=== PATIENT | female | born 1980 | race Caucasian/White ===

== ENCOUNTER 2016-07-25 20:28 | Observation (INO) | payer OTHER ==
[~2016-07-25] VITALS: Ht 175.3 cm; Wt 93.4 kg
[~2016-07-25 20:28] MED LIST: CALC-787 PO; DCS100C PO; DOCO200C2 PO; HYDR-3720 PO; IBP800T PO; IBUP800T26 PO; OXYC-202 PO; PREN-115 PO
[2016-07-25 20:46] VITALS: BP 145/91
[2016-07-25] MEDS ORDERED: PREN-142 PO (20:48)
[2016-07-25] MEDS ORDERED: D5 LR IV SOLUTION 1,000 ML IV ONE (21:47)
[2016-07-25] MEDS: D5 LR IV SOLUTION 1,000 ML IV SCH (22:15)
--- NOTE | 2016-07-25 22:17 | History & Physical ---
History and Physical Date Seen by Provider: Jul 25, 2016 Time Seen by Provider: 22:14 this patient is a 35-year-old A4 white female with an EDC of 7 717 putting her at 36-6/7 weeks' gestation. She was at a ball game earlier this evening when she fell on the bleachers. She has abrasions to her right arm and right leg. She M Armaan her abdomen with some degree of force. She denies rupture membranes or bleeding. On initial evaluation at labor and delivery she was found to be meron every 3-4 minutes lasting 60 seconds or so she does not feel those contractions. She has no idea how long she has been meron. She has had no problems with this . She has had a C- section with her previous . Understands the plan now is for observation for 24 hours due to labor and the increased risk for placental abruption after her trauma. Allergies are none Medications are vitamins Medical social and surgical histories are per the antepartum record HEENT exam is normal Neck supple no lymphadenopathy or thyromegaly Abdomen is gravid soft nontender nondistended Extremities show clubbing cyanosis. There is no Homans sign. Exam per the nurse shows a cervix 30 percent effaced closed. Assessment and plan late at 36 and 6 weeks gestation status post a fall and now is having regular contractions. This indicates increased risk for placental abruption. In light of that we will observe now for the usual 24 hours. The other issues that appreciate she may very well be in labor and we will observe for that as well. Plan will be to proceed with for either or maternal indications. labor/placental abruption Allergies and Home Medications Allergies Coded Allergies: No Known Drug Allergies (Unverified , 09/14/15) Home Medications Vit No.124/Iron/FA 1 Each Tablet, 1 EACH PO DAILY, (Reported) ANNE MARIE SANDERSON MD Jul 25, 2016 10:17 pm
[2016-07-25] MEDS: CATHETER FLUSH 10 ML SYR IV SCH (22:33)
[2016-07-25 22:41] LABS: BASOPHILS % (AUTO) 0 % (0-10); EOSINOPHILS % (AUTO) 0 % (0-10); LYMPHOCYTES # (AUTO) 2.8 X 10^3 (1.0-4.0); LYMPHOCYTES % (AUTO) 26 % (12-44); MEAN CORPUSCULAR HEMOGLOBIN 30 PG (25-34); MEAN CORPUSCULAR HGB CONC 34 G/DL (32-36); MEAN CORPUSCULAR VOLUME 88 FL (80-99); MEAN PLATELET VOLUME 12.6 FL (7.4-10.4); MONOCYTES # (AUTO) 0.7 X 10^3 (0.0-1.0); MONOCYTES % (AUTO) 7 % (0-12); NEUTROPHILS # (AUTO) 7.3 X 10^3 (1.8-7.8); NEUTROPHILS % (AUTO) 67 % (42-75); PLATELET COUNT 136 10^3/uL (130-400); RED BLOOD COUNT 4.21 10^6/uL (4.35-5.85); RED CELL DISTRIBUTION WIDTH 12.9 % (10.0-14.5); WHITE BLOOD COUNT 10.8 10^3/uL (4.3-11.0)
[2016-07-25 23:43] VITALS: BP 140/79
[2016-07-26] MEDS: D5 LR IV SOLUTION 1,000 ML IV SCH ×3 (04:36→18:13)
[2016-07-26] MEDS: CATHETER FLUSH 10 ML SYR IV SCH (06:40)
--- NOTE | 2016-07-26 06:46 | Progress Note-Standard ---
Standard Progress Note Progress Notes/Assess & Plan Date Seen by Provider: Jul 26, 2016 Time Seen by Provider: 06:44 Progress/Assessment & Plan patient without complaint. She has had no discharge or bleeding. She feel baby moving. She did not feel contractions. She had been meron throughout the night however her contractions spaced out to probably 2 or 3/h. Vital Signs Date Time Temp Pulse Resp B/P (MAP) Pulse Ox O2 Delivery O2 Flow Rate FiO2 07/25/16 23:43 97.6 90 18 140/79 Room Air 07/25/16 20:46 97.7 96 18 145/91 Room Air I & O 07/26/16 07:00 Intake Total 1000 ml Balance 1000 ml Laboratory Tests 07/25/16 22:15 The abdomen is soft and gravid nontender. Extreme show clubbing or cyanosis. There is no Homans sign. Assessment and plan hospital day 2 admitted for observation secondary to term labor and contractions after a fall. Patient has remained stable. She will be observed for total 24 hours and if she remains completely stable without signs symptoms and indications of abruptio placenta or labor then we will discharge home with follow-up in clinic Final Diagnosis labor ANNE MARIE SANDERSON MD Jul 26, 2016 6:46 am
[2016-07-26 06:51] VITALS: BP 133/89
--- NOTE | 2016-07-26 07:06 | Discharge Instructions ---
Discharge Instructions Discharge Medications New, Converted or Re-Newed RX: RX on Chart Patient Instructions Patient Instructions: as instructed Return to The Hospital For: as instructed Activity & Diet Discharge Diet: No Restrictions Activity as Tolerated: Yes Orders-Post D/C & Referrals return to clinic as scheduled Turning to clinic promptly for any signs symptoms and indications of labor, vaginal bleeding, rupture of membranes, decreased movement ANNE MARIE SANDERSON MD Jul 26, 2016 7:06 am
[2016-07-26 07:50] VITALS: BP 135/83
[2016-07-26 19:35] VITALS: BP 139/83
== END 2016-07-26 20:17 | disposition home or self-care (01) ==
LOC: WSo 20:28 → LDRP 20:28 → WSo 21:45 → LDRP 21:45 → UNDOADMOB 21:45 → LDRP 22:00 → UNDODISOB 07-26 20:17 → EDSTATUS 07-29 09:52
PROVIDERS: ADMIT Obstetrics & Gynecology; ATTEND Obstetrics & Gynecology
DX: O9A.213 Injury, poisoning and certain other consequences of external causes complicating pregnancy, third trimester (principal); S39.91XA Unspecified injury of abdomen, initial encounter; O60.03 Preterm labor without delivery, third trimester; O34.211 Maternal care for low transverse scar from previous cesarean delivery; Z3A.36 36 weeks gestation of pregnancy; W10.8XXA Fall (on) (from) other stairs and steps, initial encounter
CPT/HCPCS: 36415; 85025; 96360; 96361; 99211; G0378

== ENCOUNTER 2016-08-05 11:18 | Outpatient (CLI) | payer OTHER ==
[~2016-08-05] VITALS: Ht 175.3 cm; Wt 92.5 kg
[~2016-08-05 11:18] MED LIST changes: +PREN-142 PO
[2016-08-05 11:24] VITALS: BP 137/94
[2016-08-05] MEDS ORDERED: PSEU-137 PO (11:29)
== END 2016-08-05 11:40 | disposition home or self-care (01) ==
LOC: PREOP 11:18
PROVIDERS: ATTEND Obstetrics & Gynecology
DX: Z01.818 Encounter for other preprocedural examination (principal); Z11.2 Encounter for screening for other bacterial diseases; O34.219 Maternal care for unspecified type scar from previous cesarean delivery; O99.019 Anemia complicating pregnancy, unspecified trimester; D64.9 Anemia, unspecified
CPT/HCPCS: 87081

== ENCOUNTER 2016-08-09 05:58 | Inpatient (IN) | payer OTHER ==
[~2016-08-09] VITALS: Ht 175.3 cm; Wt 93.0 kg
[~2016-08-09 05:58] MED LIST changes: +CITRIC ACID/SOB CIT (BICITRA) 30 ML UDC ONE; +FAMOTIDINE 20MG/2ML IV (PEPCID) ONE; +METOCLOPRAMIDE INJ 10 MG/2 ML (REGLAN) ONE; +PSEU-137 PO; +ceFAZolin 2 GM/50 ML NS 50 ML ONE; +metroNIDAZOLE 500MG/100ML IVPB 100 ML ONE
--- OUTSIDE RECORDS SUMMARY | 2016-08-09 06:04 | XMS REPORT | Continuity of Care Document ---
Author Author [facility] Address Unknown Phone Unavailable Allergies Active Description Code Type Severity Reaction Onset Reported/Identified Relationship to Patient Clinical Status Yes No Known Drug Allergies [id number] Drug Allergy Unknown N/ A 09/14/2015 Medications Problems Date Dx Coded Attending Type Code Diagnosis Diagnosed By 07/05/2012 SOFI CHANG, ELISE Garland Ot 634.91 SPON ABORT UNCOMPL-INC 03/03/2013 JORGE PICKERING DO V04.81 FLU SHOT 03/03/2013 JORGE PICKERING DO V06.1 TDAP DX 03/03/2013 HECTOR MADSEN MD V04.81 FLU SHOT 03/03/2013 HECTOR AMDSEN MD V06.1 TDAP DX 03/03/2013 JORGE PICKERING DO V04.81 FLU SHOT 03/03/2013 JORGE PICKERING DO V06.1 TDAP DX 03/29/2013 HECTOR MADSEN MD V65.11 NEW MOMMY VISIT 03/29/2013 JORGE PICKERING DO V65.11 NEW MOMMY VISIT 04/23/2013 ANNE MARIE SANDERSON MD Ot 287.5 THROMBOCYTOPENIA NOS 04/23/2013 ANNE MARIE SANDERSON MD Ot 648.91 OT CURR COND-DELIVERED 04/23/2013 ANNE MARIE SANDERSON MD Ot 649.31 COAGULATION DEFECTS COMP PREG/ CHILDBIRTH 04/23/2013 ANNE MARIE SANDERSON MD Ot 652.21 BREECH PRESENTAT-DELIVER 04/23/2013 ANNE MARIE SANDERSON MD Ot 657.01 POLYHYDRAMNIOS,DEL W OR W/O MENTN ANTEPA 04/23/2013 ANNE MARIE SANDERSON MD, Ot V02.51 GROUP B STREPT CARRIER/SUSPECTED CARRIER 04/23/2013 ANNE MARIE SANDERSON MD Ot V27.0 DELIVER-SINGLE LIVEBORN 03/10/2014 Ot 652.23 03/10/2014 Ot V72.84 03/10/2014 Ot V74.8 03/10/2014 CLIFF CHANG, KAROL Ot V72.84 03/11/2014 Ot 652.23 03/11/2014 Ot V72.84 03/11/2014 Ot V74.8 03/11/2014 CLIFF CHANG, KAROL Ot V72.84 03/15/2014 MARIA E CHANG, ANNE MARIE [place] Ot 632 MISSED 03/31/2014 MARIA E CHANG, ANNE MARIE [place] Ot 632 03/31/2014 MARIA E CHANG, ANNE MARIE [place] Ot V72.63 03/31/2014 MARIA E CHANG, ANNE MARIE [place] Ot V74.8 06/01/2014 CLIFF CHANG, KAROL Ot V72.84 03/09/2015 Ot 652.23 03/09/2015 Ot V72.84 03/09/2015 Ot V74.8 03/09/2015 MARIA E CHANG, ANNE MARIE [place] Ot 632 03/09/2015 MARIA E CHANG, ANNE MARIE [place] Ot V72.63 03/09/2015 MARIA E CHANG, ANNE MARIE [place] Ot V74.8 03/09/2015 CLIFF CHANG, KAROL Ot V72.84 09/13/2015 Ot 652.23 BREECH PRESENT-ANTEPART 09/13/2015 Ot V72.84 EXAM PRE-OPERATIVE NOS 09/13/2015 Ot V74.8 SCREEN-BACTERIAL DIS NEC 09/13/2015 MARIA E CHANG, ANNE MARIE [place] Ot 632 MISSED 09/13/2015 MARIA E CHANG, ANNE MARIE [place] Ot V72.63 PRE-PROCEDURAL LABORATORY EXAMINATION 09/13/2015 MARIA E CHANG, ANNE MARIE [place] Ot V74.8 SCREEN-BACTERIAL DIS NEC 09/13/2015 CLIFF CHANG, KAROL Ot V72.84 EXAM PRE-OPERATIVE NOS 09/13/2015 Ot 652.23 BREECH PRESENT-ANTEPART 09/13/2015 Ot V72.84 EXAM PRE-OPERATIVE NOS 09/13/2015 Ot V74.8 SCREEN-BACTERIAL DIS NEC 09/13/2015 MARIA E CHANG, ANNE MARIE [place] Ot 632 MISSED 09/13/2015 ANNE MARIE SANDERSON MD, Ot V72.63 PRE-PROCEDURAL LABORATORY EXAMINATION 09/13/2015 ANNE MARIE SANDERSON MD, Ot V74.8 SCREEN-BACTERIAL DIS NEC 09/13/2015 CLIFF CHANG, KAROL Ot V72.84 EXAM PRE-OPERATIVE NOS 09/14/2015 ANNE MARIE SANDERSON MD Ot D64.9 ANEMIA, UNSPECIFIED 09/14/2015 ANNE MARIE SANDERSON MD Ot O02.1 MISSED 09/15/2015 ANNE MARIE SANDERSON MD, Ot D64.9 ANEMIA, UNSPECIFIED 09/15/2015 ANNE MARIE SANDERSON MD Ot O02.1 MISSED 09/15/2015 ANNE MARIE SANDERSON MD Ot N90.4 LEUKOPLAKIA OF VULVA 09/15/2015 ANNE MARIE SANDERSON MD Ot O02.1 MISSED 09/19/2015 ANNE MARIE SANDERSON MD Ot N90.4 LEUKOPLAKIA OF VULVA 09/19/2015 ANNE MARIE SANDERSON MD Ot O02.1 MISSED 09/19/2015 ANNE MARIE SANDERSON MD Ot N90.4 LEUKOPLAKIA OF VULVA 09/19/2015 ANNE MARIE SANDERSON MD Ot O02.1 MISSED 2015 ANNE MARIE SANDERSON MD Ot N90.4 LEUKOPLAKIA OF VULVA 2015 ANNE MARIE SANDERSON MD Ot O02.1 MISSED 07/25/2016 Ot 652.23 BREECH PRESENT-ANTEPART 07/25/2016 Ot V72.84 EXAM PRE-OPERATIVE NOS 07/25/2016 Ot V74.8 SCREEN-BACTERIAL DIS NEC 07/25/2016 ANNE MARIE SANDERSON MD Ot 632 MISSED 07/25/2016 ANNE MARIE SANDERSON MD, Ot V72.63 PRE-PROCEDURAL LABORATORY EXAMINATION 07/25/2016 ANNE MARIE SANDERSON MD, Ot V74.8 SCREEN-BACTERIAL DIS NEC 07/25/2016 CLIFF CHANG, KAROL Ot V72.84 EXAM PRE-OPERATIVE NOS 07/26/2016 ANNE MARIE SANDERSON MD, Ot O34.211 MATERN CARE FOR LOW TRANSVERSE SCAR FROM 07/26/2016 ANNE MARIE SANDERSON MD, Ot O60.03 LABOR WITHOUT DELIVERY, THIRD TR 07/26/2016 ANNE MARIE SANDERSON MD, Ot O9A.213 INJ/POISN/OTH CONSEQ OF EXTERNAL CAUSES 07/26/2016 ANNE MARIE SANDERSON MD, Ot S39.91XA UNSPECIFIED INJURY OF ABDOMEN, INITIAL E 07/26/2016 ANNE MARIE SANDERSON MD, Ot W10.8XXA FALL (ON) (FROM) OTHER STAIRS AND STEPS, 07/26/2016 ANNE MARIE SANDERSON MD, Ot Z3A.36 36 WEEKS GESTATION OF Procedures Code Description Performed By Performed On 74.1 LOW CERVICAL 04/21/2013 Results Test Result Range Automated blood complete blood count (hemogram) panel - 09/15/15 11:53 Blood leukocytes automated count (number/volume) 6.5 10*3/ uL 4.3-11.0 Blood erythrocytes automated count (number/volume) 4.42 10*6 /uL 4.35-5.85 Venous blood hemoglobin measurement (mass/volume) 13.1 g/dL 11.5-16.0 Blood hematocrit (volume fraction) 38 % 35-52 Automated erythrocyte mean corpuscular volume 85 [foz_us] 80-99 Automated erythrocyte mean corpuscular hemoglobin (mass per erythrocyte) 30 pg 25-34 Automated erythrocyte mean corpuscular hemoglobin concentration measurement ( mass/volume) 35 g/dL 32-36 Automated erythrocyte distribution width ratio 12.1 % 10.0-14.5 Automated blood platelet count (count/volume) 146 10*3/uL 130-400 Automated blood platelet mean volume measurement 11.1 [foz_ us] 7.4-10.4 Methicillin resistant Staphylococcus aureus (MRSA) screening culture - 11:55 Methicillin resistant Staphylococcus aureus (MRSA) screening culture NEG NRG Complete blood count (CBC) with automated white blood cell (WBC) differential - 07/25/16 22:15 Blood leukocytes automated count (number/volume) 10.8 10*3/ uL 4.3-11.0 Blood erythrocytes automated count (number/volume) 4.21 10*6 /uL 4.35-5.85 Venous blood hemoglobin measurement (mass/volume) 12.6 g/dL 11.5-16.0 Blood hematocrit (volume fraction) 37 % 35-52 Automated erythrocyte mean corpuscular volume 88 [foz_us] 80-99 Automated erythrocyte mean corpuscular hemoglobin (mass per erythrocyte) 30 pg 25-34 Automated erythrocyte mean corpuscular hemoglobin concentration measurement ( mass/volume) 34 g/dL 32-36 Automated erythrocyte distribution width ratio 12.9 % 10.0-14.5 Automated blood platelet count (count/volume) 136 10*3/uL 130-400 Automated blood platelet mean volume measurement 12.6 [foz_ us] 7.4-10.4 Automated blood neutrophils/100 leukocytes 67 % 42-75 Automated blood lymphocytes/100 leukocytes 26 % 12-44 Blood monocytes/100 leukocytes 7 % 0-12 Automated blood eosinophils/100 leukocytes 0 % 0-10 Automated blood basophils/100 leukocytes 0 % 0-10 Blood neutrophils automated count (number/volume) 7.3 10*3 1.8-7.8 Blood lymphocytes automated count (number/volume) 2.8 10*3 1.0-4.0 Blood monocytes automated count (number/volume) 0.7 10*3 0.0-1.0 Automated eosinophil count 0.0 10*3/uL 0.0-0.3 Automated blood basophil count (count/volume) 0.0 10*3/uL 0.0-0.1 [id number] - 07/25/16 22:15 [id number] SPECIMEN AVAILABLE NRG Methicillin resistant Staphylococcus aureus (MRSA) screening culture - 11:35 Methicillin resistant Staphylococcus aureus (MRSA) screening culture NEG NRG Encounters ACCT No. Visit Date/Time Discharge Status Pt. Type Provider Facility Loc./Unit Complaint [id number] 12/14/2013 11:25:00 12/14/2013 23: 59:59 CLS Outpatient JORGE PICKERING DO [id number] 03/29/2013 10:20:00 03/29/2013 23: 59:59 CLS Outpatient HECTOR MADSEN MD [id number] 03/03/2013 10:07:00 03/03/2013 23: 59:59 CLS Outpatient JORGE PICKERING DO
[2016-08-09] MEDS ORDERED: CITRIC ACID/SOB CIT (BICITRA) 30 ML UDC PO ONE (06:15)
[2016-08-09] MEDS ORDERED: CATHETER FLUSH 10 ML SYR IV PRN (06:15)
[2016-08-09] MEDS ORDERED: FAMOTIDINE 20MG/2ML IV (PEPCID) IV ONE (06:15)
[2016-08-09] MEDS ORDERED: METOCLOPRAMIDE INJ 10 MG/2 ML (REGLAN) IV ONE (06:15)
[2016-08-09 06:34] LABS: BASOPHILS % (AUTO) 0 % (0-10); EOSINOPHILS # (AUTO) 0.1 10^3/uL (0.0-0.3); EOSINOPHILS % (AUTO) 1 % (0-10); LYMPHOCYTES # (AUTO) 2.6 X 10^3 (1.0-4.0); LYMPHOCYTES % (AUTO) 25 % (12-44); MEAN CORPUSCULAR HEMOGLOBIN 31 PG (25-34); MEAN CORPUSCULAR HGB CONC 35 G/DL (32-36); MEAN CORPUSCULAR VOLUME 88 FL (80-99); MEAN PLATELET VOLUME 12.4 FL (7.4-10.4); MONOCYTES # (AUTO) 0.7 X 10^3 (0.0-1.0); MONOCYTES % (AUTO) 7 % (0-12); NEUTROPHILS # (AUTO) 6.8 X 10^3 (1.8-7.8); NEUTROPHILS % (AUTO) 67 % (42-75); PLATELET COUNT 123 10^3/uL (130-400); RED BLOOD COUNT 3.83 10^6/uL (4.35-5.85); RED CELL DISTRIBUTION WIDTH 12.7 % (10.0-14.5); WHITE BLOOD COUNT 10.1 10^3/uL (4.3-11.0)
[2016-08-09] MEDS: LACTATED RINGERS 1,000 ML IV PRN ×2 (06:34→07:30)
[2016-08-09] MEDS ORDERED: D5 LR IV SOLUTION 1,000 ML IV SCH (06:54)
[2016-08-09] MEDS ORDERED: OXYTOCIN/NORMAL SALINE 500 ML IV SCH (06:56)
[2016-08-09] MEDS ORDERED: OXYTOCIN/NORMAL SALINE 1,000 ML IV ONE (06:58)
[2016-08-09] MEDS ORDERED: fentaNYL INJECTION 100 MCG/2 ML AMP ONE (06:58)
[2016-08-09] MEDS ORDERED: PROMETHAZINE INJ 25 MG/ML (PHENERGAN) AMP IM PRN (07:00)
[2016-08-09] MEDS ORDERED: MEPERIDINE (DEMEROL) INJ 100 MG/ML IM PRN (07:00)
[2016-08-09] MEDS ORDERED: metroNIDAZOLE 500MG/100ML IVPB 100 ML IV ONE (07:00)
[2016-08-09] MEDS ORDERED: MEASLES,MUMPS,RUBELLA 1 EA INJ SC ONE (07:00)
[2016-08-09] MEDS ORDERED: oxyCODONE/APAP 10/325MG (PERCOCET 10) TABLET PO PRN (07:00)
[2016-08-09] MEDS ORDERED: ceFAZolin INJECTION 2,000 MG in NS (IVPB) 50 ML IV ONE (07:00)
[2016-08-09] MEDS ORDERED: TETANUS,DIPTH,PERTUSS P/F (BOOSTRIX) 0.5 ML VIAL IM ONE (07:00)
--- NOTE | 2016-08-09 07:02 | History & Physical ---
History and Physical Date Seen by Provider: Aug 09, 2016 Time Seen by Provider: 06:58 this patient is a 35-year-old A for 1 white female with an EDC of 7 717. She presents now for repeat delivery at 39 weeks gestation. Her has been complicated by GBS positive culture during the . That culture was performed on July 19, 2016. She denies rupture membranes or bleeding. this patient has had a progressive mild thrombocytopenia Allergies are none Medications are vitamin vitamins and B12 complex Past medical history, past surgical history, obstetric history, family history, social histories are per the antepartum record HEENT exam is normal Neck supple no lymphadenopathy no thyromegaly Abdomen gravid soft nontender nondistended Extremities show no clubbing cyanosis. There is no Homans sign. Pelvic exam is deferred monitor shows a normal heart rate pattern with frequent accelerations and no D cells. There are occasional contractions. Laboratory Tests 08/09/16 06:19 platelet count has noted. Assessment and plan benign week gestation with previous with mild thrombocytopenia and with a GBS positive culture. Patient is admitted now for repeat delivery. Platelet count is acceptable at 123. Surgical risks recovery follow-up and potential complications of all been discussed and reviewed. Patient's questions have been answered and she is ready to proceed 39 week repeat delivery with thrombocytopenia Allergies and Home Medications Allergies Coded Allergies: No Known Drug Allergies (Unverified , 09/14/15) Home Medications Vit No.124/Iron/FA 1 Each Tablet, 1 EACH PO DAILY, (Reported) Pseudoephedrine HCl 30 Mg Tablet, 30 MG PO BID PRN for nasal congestion, ( Reported) Clinical Quality Measures DVT/VTE Risk/Contraindication: Risk Factor Score Per Nursin RFS Level Per Nursing on Admit: 2=Moderate ANNE MARIE SANDERSON MD Aug 09, 2016 7:02 am
[2016-08-09] MEDS ORDERED: D5 LR IV SOLUTION 1,000 ML IV ONE (07:04)
[2016-08-09 07:30] VITALS: BP 140/89
[2016-08-09] MEDS ORDERED: ONDANSETRON 4 MG/2 ML (SDV) Z0FRAN ONE (07:35)
[2016-08-09] MEDS ORDERED: PHENYLEPHRINE 100 MCG/ML 10 ML (ANESTHESIA) SYR ONE (07:35)
--- NOTE | 2016-08-09 08:09 | Progress Note-Post Operative ---
Post-Operative Progess Note Surgeon (s)/Guidance Services Coordinator (s) Surgeon ANNE MARIE SANDERSON MD Guidance Services Coordinator: Starr Leon RN Pre-Operative Diagnosis 39 week gestation with previous and GBS positive culture Post-Operative Diagnosis same Procedure & Operative Findings Date of Procedure 08/09/16 Procedure Performed/Findings repeat low transverse delivery of a viable male infant with Apgars of 8915 minutes Birthweight of 9 lbs. 4 oz. at time 07 43 Anesthesia Type spinal analgesia Estimated Blood Loss Estimated blood loss (mL): 600 mL Specimens/Packing Specimens Removed male baby delivered, placenta sent to pathology Packing: none ANNE MARIE SANDERSON MD Aug 09, 2016 8:09 am
--- NOTE | 2016-08-09 08:14 | Operative Report ---
Operative Report Date of Procedure/Surgery Aug 09, 2016 Surgeon (s) ANNE MARIE SANDERSON MD Chemistry Technician (s): Starr Leon RN Post-Operative Diagnosis 39 week gestation with previous and GBS positive culture Procedure Performed repeat delivery of viable male infant with Apgars of 8915 expect a weighted 9 pounds and 4 ounces for 07 Description of Procedure Anesthesia Type: Spinal Estimated blood loss (mL): 600 mL Specimen(s) collected/removed placenta Packing: none Description of the Procedure with the patient in the supine position under satisfactory spinal anesthesia patient was prepped and draped in the usual fashion for abdominal surgery. A repeat Pfannenstiel incision made through the skin with the scalpel at the site of the patient's previous Pfannenstiel incision by removing the incisional scar. The abdomen was entered in the usual manner. Bladder retractor placed in position clean scalpel used to make a 4 cm hysterotomy incision transversely across loading segment. That incision was extended bluntly. The membranes were ruptured in the process releasing copious clear fluid. Chakraborty forceps were applied to facilitate delivery of a vigorous viable male . Infant had Apgars of 8 and 9 at one and 5 minutes respectively weight of 9 pounds ounces time and arterial umbilical cord gases pending. the umbilical cord was doubly clamped and cut and the passed to the back are in the pediatric nurse in attendance for the delivery The placenta delivered spontaneously Engel and was normal with a three-vessel cord. It was sent to pathology for permanent section due to the patient GBS positive culture. the uterus was exteriorized interior wiped clean with a wet laparotomy sponge and the uterine incision closed with a running locked suture ligated hemostasis was complete. The uterus was returned to the abdominal cavity all blood clot and debris was removed from the abdominal cavity. With sponge and needle counts correct. The anterior parietal peritoneum was closed with running suture of 2-0 Vicryl. The rectus muscles were reapproximated with 2-0 Vicryl. This fascia was closed with 2-0 Vicryl. The subcutaneous tissue was closed with 2-0 Vicryl. The skin was stapled. Sponge and needle counts were correct on completion of the procedure. Estimated blood loss was around 600 mL. The patient tolerated procedure well and was transferred to recovery room in stable condition. The infant had been taken stable to the full term nursery under the care of nurse back the pediatric nurse in attendance for delivery. Findings of the Procedure normal baby normal uterus normal placenta Allergies and Home Medications Allergies Coded Allergies: No Known Drug Allergies (Unverified , 09/14/15) Home Medications Vit No.124/Iron/FA 1 Each Tablet, 1 EACH PO DAILY, (Reported) Pseudoephedrine HCl 30 Mg Tablet, 30 MG PO BID PRN for nasal congestion, ( Reported) ANNE MARIE SANDERSON MD Aug 09, 2016 8:14 am
[2016-08-09] MEDS: KETOROLAC 30 MG/ML VIAL IVP SCH ×3 (09:00→21:06)
[2016-08-09 12:33] VITALS: BP 120/75
[2016-08-09] MEDS: HYDROcodone/APAP 10 MG/325 MG (LORTAB) TAB PO PRN (14:41)
[2016-08-09] MEDS: DOCUSATE SODIUM 100 MG (COLACE) CAP PO SCH ×2 (14:41→21:06)
[2016-08-09 16:58] VITALS: BP 128/83
[2016-08-09 20:00] VITALS: BP 129/71
[2016-08-09] MEDS ORDERED: DOCU100C37 PO (20:21)
[2016-08-09] MEDS ORDERED: IBUP-1780 PO (20:21)
[2016-08-09] MEDS ORDERED: HYDR-3820 PO (20:21)
--- NOTE | 2016-08-09 20:22 | Discharge Instructions ---
Discharge Instructions Discharge Medications New, Converted or Re-Newed RX: RX on Chart Patient Instructions Patient Instructions: as directed Return to The Hospital For: as directed Activity & Diet Discharge Diet: No Restrictions Activity as Tolerated: No Orders-Post D/C & Referrals Follow Up Appt: RTC next Friday, August 26, 2016 for incision check. Call to make follow up appt. for patient in 4 weeks. Wound Care: Remove iliana, apply benzoin and steri strips. Activity Per routine post instructions. Please call in RX to patient pharmacy. Diet as tolerated Patient may shower or tub bathe as desired. Continue home meds ANNE MARIE SANDERSON MD Aug 09, 2016 8:22 pm
[2016-08-10 00:02] VITALS: BP 132/75
[2016-08-10] MEDS ORDERED: KETOROLAC 30 MG/ML VIAL ONE (04:07)
[2016-08-10 04:15] VITALS: BP 141/90
[2016-08-10] MEDS: KETOROLAC 30 MG/ML VIAL IVP SCH (04:20)
[2016-08-10] MEDS: HYDROcodone/APAP 10 MG/325 MG (LORTAB) TAB PO PRN ×2 (06:06→17:32)
--- NOTE | 2016-08-10 07:16 | Progress Note-Standard ---
Standard Progress Note Progress Notes/Assess & Plan Date Seen by Provider: Aug 10, 2016 Time Seen by Provider: 07:15 Progress/Assessment & Plan this patient is without complaint. She is ambulating, voiding, tolerating by mouth well, has good pain control, denies chest pain, denies shortness of breath , denies nausea vomiting, denies headache. Vital Signs Date Time Temp Pulse Resp B/P (MAP) Pulse Ox O2 Delivery O2 Flow Rate FiO2 08/10/16 04:15 97.5 87 18 141/90 98 Room Air 08/10/16 00:02 97.2 74 18 132/75 97 Room Air 08/09/16 20:00 98.0 80 17 129/71 95 Room Air 08/09/16 16:58 96.7 70 18 128/83 97 Room Air 08/09/16 12:33 98.6 70 16 120/75 98 08/09/16 07:30 91 18 140/89 I & O 08/10/16 07:00 Intake Total 5840 ml Output Total 3475 ml Balance 2365 ml Vital signs are stable. Patient is afebrile. Fundus is firm below the umbilicus and nontender. The incision is clean dry and intact. Extremities show no clubbing cyanosis. There is no Homans sign. Assessment and plan postoperative day number 1 status post repeat at 39 weeks gestation. Patient is doing well and will receive routine convalescence care today and likely discharge home tomorrow ANNE MARIE SANDERSON MD Aug 10, 2016 7:16 am
[2016-08-10] MEDS: DOCUSATE SODIUM 100 MG (COLACE) CAP PO SCH ×2 (09:20→22:08)
[2016-08-10] MEDS: IBUPROFEN 800 MG (MOTRIN) TAB PO SCH ×3 (09:20→22:08)
[2016-08-10 09:30] VITALS: BP 129/81
--- NOTE | 2016-08-10 13:19 | Anesthesia-Regional Post-Op ---
Regional Patient Condition Mental Status: Alert, Oriented x3 Circulation: Same as Pre-Op Headache: Absent Sensation: Full Recovery Motor Block: Absent Post Op Complications Complications None Follow Up Care/Instructions Patient Instructions None needed. Anesthesia/Patient Condition Patient is doing well, no complaints, stable vital signs, no apparent adverse anesthesia problems. No complications reported per nursing. GHADA ORTEZ CRNA Aug 10, 2016 13:19
[2016-08-10 14:15] VITALS: BP 134/84
[2016-08-10] MEDS: HYDROCORTISONE 2.5% CREAM (ANUSOL-HC) 30 GM TOP SCH (17:32)
[2016-08-10 20:35] VITALS: BP 134/79
[2016-08-11] MEDS: HYDROcodone/APAP 10 MG/325 MG (LORTAB) TAB PO PRN ×2 (00:02→09:11)
[2016-08-11 00:05] VITALS: BP 133/77
[2016-08-11] MEDS: IBUPROFEN 800 MG (MOTRIN) TAB PO SCH ×2 (04:49→10:26)
[2016-08-11 06:30] VITALS: BP 130/79
--- NOTE | 2016-08-11 07:23 | Progress Note-Standard ---
Standard Progress Note Progress Notes/Assess & Plan Date Seen by Provider: Aug 11, 2016 Time Seen by Provider: 07:21 Progress/Assessment & Plan this patient is without complaint. She is ambulating, voiding, tolerating by mouth well, has good pain control, denies chest pain, denies shortness of breath , denies nausea vomiting, denies headache. Vital Signs Date Time Temp Pulse Resp B/P (MAP) Pulse Ox O2 Delivery O2 Flow Rate FiO2 08/10/16 04:15 97.5 87 18 141/90 98 Room Air 08/10/16 00:02 97.2 74 18 132/75 97 Room Air 08/09/16 20:00 98.0 80 17 129/71 95 Room Air 08/09/16 16:58 96.7 70 18 128/83 97 Room Air 08/09/16 12:33 98.6 70 16 120/75 98 08/09/16 07:30 91 18 140/89 I & O 08/10/16 07:00 Intake Total 5840 ml Output Total 3475 ml Balance 2365 ml Vital signs are stable. Patient is afebrile. Fundus is firm below the umbilicus and nontender. The incision is clean dry and intact. Extremities show no clubbing cyanosis. There is no Homans sign. Assessment and plan postoperative day number 1 status post repeat at 39 weeks gestation. Patient is doing well and will receive routine convalescence care today and likely discharge home tomorrow August 11, 2016 Patient is without complaint. She is ambulating, voiding, tolerating oral intake well, has good pain control, and is requesting discharge home. Vital Signs Date Time Temp Pulse Resp B/P (MAP) Pulse Ox O2 Delivery O2 Flow Rate FiO2 08/11/16 06:30 97.6 71 18 130/79 97 Room Air 08/11/16 00:05 97.4 77 18 133/77 97 Room Air 08/10/16 20:35 98.0 80 18 134/79 97 Room Air 08/10/16 14:15 98.0 75 20 134/84 97 Room Air 08/10/16 09:30 97.4 76 20 129/81 97 Room Air I & O 08/11/16 07:00 Intake Total 1100 ml Output Total 1850 ml Balance -750 ml vital signs are stable. Patient is afebrile. Fundus is firm below the umbilicus and nontender. The incision is clean dry and intact. Extremities show no clubbing cyanosis. There is no Homans sign. There is some pretibial pitting edema that is normal. Assessment and plan postoperative day number 2 status post repeat doing well. Plan is for discharge home with follow-up in clinic. Final Diagnosis 39 week repeat delivery ANNE MARIE SANDERSON MD Aug 11, 2016 7:23 am
[2016-08-11] MEDS ORDERED: TETANUS,DIPTH,PERTUSS P/F (BOOSTRIX) 0.5 ML VIAL IM ONE (09:03)
[2016-08-11] MEDS: DOCUSATE SODIUM 100 MG (COLACE) CAP PO SCH (09:11)
[2016-08-11] MEDS: HYDROCORTISONE 2.5% CREAM (ANUSOL-HC) 30 GM TOP SCH (09:36)
== END 2016-08-11 11:30 | disposition home or self-care (01) | DRG 766 ==
LOC: LDRP 05:58
PROVIDERS: ADMIT Obstetrics & Gynecology; ATTEND Obstetrics & Gynecology
PROC: 10D00Z1 Extraction of Products of Conception, Low, Open Approach (ICD-10-PCS; principal; 2016-08-09 07:21)
DX: O99.824 Streptococcus B carrier state complicating childbirth (principal); O99.13 Other diseases of the blood and blood-forming organs and certain disorders involving the immune mechanism complicating the puerperium; D69.6 Thrombocytopenia, unspecified; O34.211 Maternal care for low transverse scar from previous cesarean delivery; Z3A.39 39 weeks gestation of pregnancy; Z37.0 Single live birth; Z23 Encounter for immunization
CPT/HCPCS: 36415; 85025; 86850; 86900; 86901; 90715; 94664

== ENCOUNTER → 2017-10-10 | Outpatient (CLI) | payer OTHER ==
[~2017-10-10] MED LIST changes: -CITRIC ACID/SOB CIT (BICITRA) 30 ML UDC ONE; +DOCU100C37 PO; -FAMOTIDINE 20MG/2ML IV (PEPCID) ONE; +HYDR-3820 PO; +IBUP-1780 PO; -METOCLOPRAMIDE INJ 10 MG/2 ML (REGLAN) ONE; -OXYC-202 PO; +OXYC1TAB12 PO; -ceFAZolin 2 GM/50 ML NS 50 ML ONE; -metroNIDAZOLE 500MG/100ML IVPB 100 ML ONE
--- NOTE | 2017-10-10 11:47 | Diagnostic Imaging Report ---
EXAM: Bilateral mammograms INDICATION: Screening COMPARISON: No prior examinations are available for comparison. This is a baseline exam. TECHNIQUE: The current study was also evaluated with a Computer Aided Detection (CAD) system. 3D tomosynthesis was also performed and reviewed. FINDINGS: The fibroglandular tissue is heterogeneously dense bilaterally. There are a few benign-type calcifications. There is no dominant mass, spiculated lesion or suspicious calcification identified. The skin, nipples and axillae are unremarkable. IMPRESSION: Category 2, benign. ACR BI-RADS Category 2: Benign findings. Result letter will be mailed to the patient. Note: At least 10% of breast cancer is not imaged by mammography. Dictated by: Dictated on workstation # [id number]
== END ==
LOC: RAD 08:06
PROVIDERS: ATTEND Obstetrics & Gynecology
DX: Z12.31 Encounter for screening mammogram for malignant neoplasm of breast (principal); R92.1 Mammographic calcification found on diagnostic imaging of breast
CPT/HCPCS: 77067

== ENCOUNTER → 2020-10-03 | Outpatient (CLI) | payer OTHER ==
[~2020-10-03] MED LIST changes: +ACHYD1T PO; -HYDR-3820 PO
--- NOTE | 2020-10-03 12:48 | Diagnostic Imaging Report ---
Indication: Routine screening. Comparison is made with prior mammogram from 10/10/2017. 2-D and 3-D bilateral screening mammography was performed with CAD. Both breasts are heterogeneously dense, limiting the sensitivity of mammography. The parenchymal pattern is stable. No mass or malignant-appearing microcalcifications are seen. Axillae are unremarkable. IMPRESSION: BI-RADS Category 1 No mammographic features suspicious for malignancy are identified. ACR BI-RADS Category 1: Negative. Result letter will be mailed to the patient. Note: At least 10% of breast cancer is not imaged by mammography. Dictated by: Dictated on workstation # [id number]
== END ==
LOC: RAD 08:00
PROVIDERS: ATTEND Obstetrics & Gynecology
DX: Z12.31 Encounter for screening mammogram for malignant neoplasm of breast (principal)
CPT/HCPCS: 77063; 77067